=== PATIENT | female | born 1990 | race Two or more races ===

== ENCOUNTER 2016-09-23 21:45 | Emergency (ER) | payer SELFPAY ==
[~2016-09-23] VITALS: Ht 154.9 cm; Wt 74.8 kg
--- NOTE | 2016-09-23 22:44 | PHYS DOC ---
Past Medical History Past Medical History: No Pertinent History Past Surgical History: No Surgical History Alcohol Use: None Drug Use: None Adult General Chief Complaint Chief Complaint: ABDOMINAL PAIN HPI HPI Patient is a 25 year old [place] female who presents with right left lower quadrant abdominal pain. She states it started 3 days ago and it was pain with urination but now is constant. She denies any fevers chills nausea vomiting. 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 She denies any surgeries. She is sexually active but denies any vaginal bleeding or discharge. She denies any constipation or diarrhea. She states nothing makes the pain better or worse. The pain does not radiate. Review of Systems Review of Systems Constitutional: Denies fever or chills [] Eyes: Denies change in visual acuity, redness, or eye pain [] HENT: Denies nasal congestion or sore throat [] Respiratory: Denies cough or shortness of breath [] Cardiovascular: No additional information not addressed in HPI [] GI: Denies nausea, vomiting, bloody stools or diarrhea, positive for abdominal pain : Denies dysuria or hematuria [] Musculoskeletal: Denies back pain or joint pain [] Integument: Denies rash or skin lesions [] Neurologic: Denies headache, focal weakness or sensory changes [] Endocrine: Denies polyuria or polydipsia [] Current Medications Current Medications Current Medications Medications (Trade) Dose Ordered Sig/Bharat Start Time Stop Time Status Last Admin Dose Admin Info (Do NOT chart on this entry -- for MONITORING) 1 each PRN DAILY PRN 09/23/16 23:15 09/25/16 23:14 Iohexol (Omnipaque 300 Mg/ml) 75 ml 1X ONCE 09/23/16 23:15 09/23/16 23:16 DC 09/23/16 23:27 75 ML Sodium Chloride 1,000 ml @ 1,000 mls/hr 1X ONCE 09/23/16 23:00 09/23/16 23:59 DC 09/23/16 23:04 1,000 MLS/HR Allergies Allergies Allergies Coded Allergies Type Severity Reaction Last Updated Verified No Known Drug Allergies 09/23/16 No Physical Exam Physical Exam Constitutional: Well developed, well nourished, no acute distress, non-toxic appearance. [] HENT: Normocephalic, atraumatic, bilateral external ears normal, oropharynx moist, no oral exudates, nose normal. [] Eyes: PERRLA, EOMI, conjunctiva normal, no discharge. [] Neck: Normal range of motion, no tenderness, supple, no stridor. [] Cardiovascular:Heart rate regular rhythm, no murmur [] Lungs & Thorax: Bilateral breath sounds clear to auscultation [] Abdomen: Bowel sounds normal, soft, palpation the right and suprapubic quadrant , no rebound or guarding, no masses, no pulsatile masses. [] Skin: Warm, dry, no erythema, no rash. [] Back: No tenderness, no CVA tenderness. [] Extremities: No tenderness, no cyanosis, no clubbing, ROM intact, no edema. [] Neurologic: Alert and oriented X 3, normal motor function, normal sensory function, no focal deficits noted. [] Psychologic: Affect normal, judgement normal, mood normal. [] Current Patient Data Vital Signs Vital Signs Date Time Temp Pulse Resp B/P (MAP) Pulse Ox O2 Delivery O2 Flow Rate FiO2 09/23/16 22:10 98.2 16 109/55 (73) 97 Room Air 98.2 Lab Values Laboratory Tests Test 09/23/16 21:28 09/23/16 21:55 09/23/16 22:40 POC Urine HCG, Qualitative Hcg negative (Negative) Urine Collection Type Unknown Urine Color Yellow Urine Clarity Clear Urine pH 5.5 Urine Specific [place] >=1.030 Urine Protein Negative mg/dL (NEG-TRACE) Urine Glucose (UA) Negative mg/dL (NEG) Urine Ketones (Stick) Negative mg/dL (NEG) Urine Blood Negative (NEG) Urine Nitrite Negative (NEG) Urine Bilirubin Negative (NEG) Urine Urobilinogen Dipstick 0.2 mg/dL (0.2 mg/dL) Urine Leukocyte Esterase Small (NEG) Urine RBC 0 /HPF (0-2) Urine WBC Occ /HPF (0-4) Urine Squamous Epithelial Cells Many /LPF Urine Bacteria Moderate /HPF (0-FEW) Urine Mucus Marked /LPF White Blood Count 9.2 x10^3/uL (4.0-11.0) Red Blood Count 4.37 x10^6/uL (3.50-5.40) Hemoglobin 12.7 g/dL (12.0-15.5) Hematocrit 37.9 % (36.0-47.0) Mean Corpuscular Volume 87 fL (79-100) Mean Corpuscular Hemoglobin 29 pg (25-35) Mean Corpuscular Hemoglobin Concent 33 g/dL (31-37) Red Cell Distribution Width 13.4 % (11.5-14.5) Platelet Count 228 x10^3/uL (140-400) Neutrophils (%) (Auto) 47 % (31-73) Lymphocytes (%) (Auto) 45 % (24-48) Monocytes (%) (Auto) 6 % (0-9) Eosinophils (%) (Auto) 1 % (0-3) Basophils (%) (Auto) 1 % (0-3) Neutrophils # (Auto) 4.3 x10^3uL (1.8-7.7) Lymphocytes # (Auto) 4.1 x10^3/uL (1.0-4.8) Monocytes # (Auto) 0.6 x10^3/uL (0.0-1.1) Eosinophils # (Auto) 0.1 x10^3/uL (0.0-0.7) Basophils # (Auto) 0.1 x10^3/uL (0.0-0.2) Sodium Level 142 mmol/L (136-145) Potassium Level 4.0 mmol/L (3.5-5.1) Chloride Level 105 mmol/L (98-107) Carbon Dioxide Level 29 mmol/L (21-32) Anion Gap 8 (6-14) Blood Urea Nitrogen 17 mg/dL (7-20) Creatinine 0.8 mg/dL (0.6-1.0) Estimated GFR (Cockcroft-Gault) 86.7 Glucose Level 83 mg/dL (70-99) Calcium Level 9.0 mg/dL (8.5-10.1) Total Bilirubin 0.2 mg/dL (0.2-1.0) Direct Bilirubin 0.1 mg/dL (0.0-0.2) Aspartate Amino Transferase (AST) 22 U/L (15-37) Alanine Aminotransferase (ALT) 43 U/L (14-59) Alkaline Phosphatase 59 U/L (46-116) Creatine Kinase 56 U/L (26-192) Creatine Kinase MB (Mass) < 0.5 ng/mL (0.0-3.6) Creatine Kinase MB Relative Index 0.9 % (0-4) Total Protein 7.2 g/dL (6.4-8.2) Albumin 3.6 g/dL (3.4-5.0) Lipase 184 U/L (73-393) Laboratory Tests 09/23/16 22:40 Laboratory Tests 09/23/16 22:40 EKG EKG [] Radiology/Procedures Radiology/Procedures [facility] [address] [place] [address] IMAGING REPORT Signed PATIENT: GERALDO POLANCO ACCOUNT: [id number] : 1990 LOCATION: ER AGE: 25 SEX: F EXAM STATUS: REG ER ORD. PHYSICIAN: MCKAY HO MD REASON: rlq pain PROCEDURE: CT ABD PELV W/ IV CONTRST ONLY CT scan of the abdomen and pelvis with contrast 09/23/2016 Clinical history: Right lower quadrant abdominal pain since earlier tonight. TECHNIQUE: After the intravenous administration of 75 cc of Omnipaque 300, contiguous, 5 mm axial sections were obtained through the abdomen and pelvis. FINDINGS: No previous imaging studies are available for comparison. The absence of oral contrast material limits this study for the detection of bowel pathology. Images through the lung bases demonstrate minimal dependent subsegmental atelectasis bilaterally. The liver, spleen, pancreas, adrenal glands and kidneys are within normal limits. The abdominal aorta tapers normally. The gallbladder is contracted. No free fluid or free air is seen within the abdomen. The appendix is partially visualized. Mildly dilated fluid-filled ileal loops are seen within the right lower quadrant abdomen/pelvis without definite evidence of obstruction. Images through the pelvis demonstrate the urinary bladder distended with urine. A punctate calcification is seen within the pelvis consistent with a phlebolith. Prominent follicles are seen involving both ovaries. A small amount of free fluid is seen surrounding the right ovary. Minimal S-shaped curvature of the thoracolumbar spine is seen. IMPRESSION: 1. Mildly dilated ileal loops are seen within the right lower quadrant of the abdomen without definite evidence of bowel obstruction. 2. A small amount of free fluid is seen adjacent to the right ovary. 3. No additional acute abnormality is seen. Electronically signed by: Toby Roberts MD (09/23/2016 11:41 PM) DICTATED and SIGNED BY: TOBY ROBERTS MD DATE: 09/23/16 8001 CC: MCKAY HO MD; NO PCP ~ [facility] [address] [place] [address] IMAGING REPORT Signed PATIENT: GERALDO POLANCO ACCOUNT: [id number] : 1990 LOCATION: ER AGE: 25 SEX: F EXAM STATUS: REG ER ORD. PHYSICIAN: MCKAY HO MD REASON: right lower abd pain PROCEDURE: PELVIS COMPLETE Pelvic ultrasound 09/24/2016 CLINICAL HISTORY: Right pelvic pain. Technique: Using the distended urinary bladder as a sonographic window, a real-time ultrasound examination of the pelvis was performed. Multiple images were obtained. FINDINGS: The uterus is within normal limits in size and echogenicity. It measures 8.5 x 5.7 x 4.2 cm in longitudinal, transverse, and AP dimensions. The endometrial echo complex measures 5 mm in thickness which is within normal limits. No focal abnormality of the uterus is seen. Both ovaries are within normal limits in size and echogenicity. The right ovary measures 4.1 x 3.3 x 2.8 cm in size. The left ovary measures 4.2 x 3.6 x 2.8 cm in size. No adnexal mass is seen. No free fluid is noted. IMPRESSION: Negative study. Electronically signed by: Toby Roberts MD (09/24/2016 1:34 AM) DICTATED and SIGNED BY: TOBY ROBERTS MD DATE: 09/24/16 0132 CC: MCKAY HO MD; NO PCP ~ Impressions: Abdominal pain Course & Med Decision Making Course & Med Decision Making Pertinent Labs and Imaging studies reviewed. (See chart for details) ET scan and ultrasound doesn't show any acute abnormality's. She states positive for leuks on her urine, she does complain about dysuria. We'll go and treat for UTI at this time as he doesn't improve her symptoms. Return precautions given. She is agreeable Plan B discharged in stable condition at this time. [place] Disclaimer Dragon Disclaimer This electronic medical record was generated, in whole or in part, using a voice recognition dictation system. Departure Departure Impression: Primary Impression: Abdominal pain Disposition: HOME, SELF-CARE Condition: STABLE Patient Instructions: Abdominal Pain Additional Instructions: The CAT scan and ultrasound did not show any acute abnormalities. You might have a bladder infection but the test isn't overwhelmingly convincing. I am treating you for a bladder infection to see if this doesn't help your pain go away. You should follow up with her primary care physician within the next 4-5 days. Return ER if your pain gets worse she developed fevers you have uncontrolled nausea vomiting or other concerns. Scripts Ciprofloxacin Hcl (CIPRO) 500 Mg Tablet 1 TAB PO BID for 3 Days, #6 TAB Prov: MCKAY HO MD 09/24/16 Problem Qualifiers Primary Impression: Abdominal pain Abdominal location: lower abdomen, unspecified Qualified Codes: R10.30 - Lower abdominal pain, unspecified MCKAY HO MD Sep 23, 2016 22:44
[2016-09-23 22:46] LABS: BASO # 0.1 x10^3/uL (0.0-0.2); BASO % 1 % (0-3); EOS % 1 % (0-3); HEMATOCRIT 37.9 % (36.0-47.0); HEMOGLOBIN 12.7 g/dL (12.0-15.5); LYMPH # 4.1 x10^3/uL (1.0-4.8); LYMPH % 45 % (24-48); MEAN CORPUSCULAR HEMOGLOBIN 29 pg (25-35); MEAN CORPUSCULAR HGB CONC 33 g/dL (31-37); MEAN CORPUSCULAR VOLUME 87 fL (79-100); MONO % 6 % (0-9); NEUT % 47 % (31-73); PLATELET COUNT 228 x10^3/uL (140-400); RED BLOOD COUNT 4.37 x10^6/uL (3.50-5.40); RED CELL DISTRIBUTION WIDTH 13.4 % (11.5-14.5); WHITE BLOOD COUNT 9.2 x10^3/uL (4.0-11.0)
[2016-09-23 22:48] LABS: BILIRUBIN,URINE NEGATIVE (NEG); GLUCOSE,URINE NEGATIVE (NEG); NITRITE,URINE NEGATIVE (NEG); PH,URINE 5.5; PROTEIN,URINE NEGATIVE (NEG-TRACE); UROBILINOGEN,URINE 0.2 mg/dL (0.2 mg/dL)
[2016-09-23 22:55] LABS: BACTERIA,URINE MODERATE /HPF (0-FEW); RBC,URINE 0 /HPF (0-2); SQUAMOUS EPITHELIAL CELL,UR MANY /LPF; WBC,URINE OCC /HPF (0-4)
[2016-09-23 22:58] LABS: CREATININE 0.8 mg/dL (0.6-1.0); GFR 86.7
[2016-09-23] MEDS ORDERED: IV NORMAL SALINE 1000ML BAG 1,000 ML IV ONE (23:00)
[2016-09-23 23:04] LABS: ALBUMIN 3.6 g/dL (3.4-5.0); DIRECT BILIRUBIN 0.1 mg/dL (0.0-0.2); TOTAL BILIRUBIN 0.2 mg/dL (0.2-1.0); TOTAL PROTEIN 7.2 g/dL (6.4-8.2)
[2016-09-23 23:12] LABS: CREATINE KINASE 56 U/L (26-192)
[2016-09-23 23:15] LABS: CKMB MASS < 0.5 ng/mL (0.0-3.6)
[2016-09-23] MEDS ORDERED: CONTRAST GIVEN MC PRN (23:15)
[2016-09-23] MEDS ORDERED: IOHEXOL 300 MG/ML 75 ML VIAL IV ONE (23:15)
--- NOTE | 2016-09-23 23:45 | RAD ---
CT scan of the abdomen and pelvis with contrast 09/23/2016 Clinical history: Right lower quadrant abdominal pain since earlier tonight. TECHNIQUE: After the intravenous administration of 75 cc of Omnipaque 300, contiguous, 5 mm axial sections were obtained through the abdomen and pelvis. FINDINGS: No previous imaging studies are available for comparison. The absence of oral contrast material limits this study for the detection of bowel pathology. Images through the lung bases demonstrate minimal dependent subsegmental atelectasis bilaterally. The liver, spleen, pancreas, adrenal glands and kidneys are within normal limits. The abdominal aorta tapers normally. The gallbladder is contracted. No free fluid or free air is seen within the abdomen. The appendix is partially visualized. Mildly dilated fluid-filled ileal loops are seen within the right lower quadrant abdomen/pelvis without definite evidence of obstruction. Images through the pelvis demonstrate the urinary bladder distended with urine. A punctate calcification is seen within the pelvis consistent with a phlebolith. Prominent follicles are seen involving both ovaries. A small amount of free fluid is seen surrounding the right ovary. Minimal S-shaped curvature of the thoracolumbar spine is seen. IMPRESSION: 1. Mildly dilated ileal loops are seen within the right lower quadrant of the abdomen without definite evidence of bowel obstruction. 2. A small amount of free fluid is seen adjacent to the right ovary. 3. No additional acute abnormality is seen. Electronically signed by: Toby Roberts MD (09/23/2016 11:41 PM)
[2016-09-24 01:13] VITALS: BP 131/69
--- NOTE | 2016-09-24 01:37 | RAD ---
Pelvic ultrasound 09/24/2016 CLINICAL HISTORY: Right pelvic pain. Technique: Using the distended urinary bladder as a sonographic window, a real-time ultrasound examination of the pelvis was performed. Multiple images were obtained. FINDINGS: The uterus is within normal limits in size and echogenicity. It measures 8.5 x 5.7 x 4.2 cm in longitudinal, transverse, and AP dimensions. The endometrial echo complex measures 5 mm in thickness which is within normal limits. No focal abnormality of the uterus is seen. Both ovaries are within normal limits in size and echogenicity. The right ovary measures 4.1 x 3.3 x 2.8 cm in size. The left ovary measures 4.2 x 3.6 x 2.8 cm in size. No adnexal mass is seen. No free fluid is noted. IMPRESSION: Negative study. Electronically signed by: Toby Roberts MD (09/24/2016 1:34 AM)
[2016-09-24] MEDS ORDERED: CIPR500T94 PO (01:46)
[2016-09-24] MEDS ORDERED: CIPROFLOXACIN HCL 250 MG TABLET. PO ONE (02:00)
== END 2016-09-24 02:04 | disposition home or self-care (01) ==
LOC: ER 21:45
DX: R10.32 Left lower quadrant pain (principal); R30.0 Dysuria; Z79.899 Other long term (current) drug therapy
CPT/HCPCS: 36415; 74177; 76856; 80048; 80076; 81001; 81025; 82553; 83690; 85027; 87086; 96360; 99285; J7030; Q9967